=== PATIENT | male | born 1960 | race Caucasian/White ===

== ENCOUNTER 2023-01-29 01:22 | Emergency (ER) | payer SELFPAY ==
[~2023-01-29] VITALS: Ht 193 cm; Wt 104.3 kg
--- NOTE | 2023-01-29 01:22 | NUR ---
BIB by alondra [facility] for prebook. pt c/o bilateral knee pain that per pt is a chronic condition. pmhx afib and hypertension. denies allergies.
--- NOTE | 2023-01-29 01:22 | NUR ---
PT IS WITH THE [facility] [place]
--- NOTE | 2023-01-29 01:22 | NUR ---
UM[facility], PT TO CHAIR C
[2023-01-29 01:23] VITALS: BP 153/99; PULSE 91; RESP 18; TEMP 97.4; TEMP 98; O2SAT 96
--- NOTE | 2023-01-29 01:43 | NUR ---
PATIENT BIB [employer]. PATIENT EXAMINED BY DR. HARVEY. PATIENT MEDICALLY CLEARED AND RELEASED IN CUSTODY IN STABLE CONDITION. ORIGINAL PRE-BOOK FORM GIVEN TO OFF[facility], #[id number].
[2023-01-29 01:46] VITALS: O2SAT 96
== END 2023-01-29 01:43 ==
LOC: MED 01:22
DX: M25.561 Pain in right knee (principal); M25.562 Pain in left knee; I11.0 Hypertensive heart disease with heart failure; Z79.899 Other long term (current) drug therapy
CPT/HCPCS: 99283